=== PATIENT | female | born 1980 | race Caucasian/White ===

== ENCOUNTER 2017-08-16 02:33 | Inpatient (IN) | payer OTHER ==
[2017-08-16 04:06] LABS: Hematocrit 37 % (35-47); Hemoglobin 12.8 g/dl (12.0-16.0); Mean Corpuscular HGB Conc 34 g/dl (31-36); Mean Corpuscular Hemoglobin 31 pg (27-31); Mean Corpuscular Volume 89 fL (80-97); Mean Platelet Volume 9 um3 (7.4-10.4); Red Blood Count 4.19 10^6/ul (4.0-5.4); Red Cell Distribution Width 15 % (10.5-15); White Blood Count 9.2 10^3/ul (3.5-10.8)
[2017-08-16] MEDS ORDERED: Oxytocin in LR* 20 UNITS/1,000 ML BAG IVPB ONE (04:39)
[2017-08-16] MEDS ORDERED: Glycerin ADULT SUPP PR PRN (04:41)
[2017-08-16] MEDS ORDERED: Acetaminophen TAB* 325 MG PO PRN (04:41)
[2017-08-16] MEDS ORDERED: Dibucaine 1% 28.35 GM TUBE PR PRN (04:41)
[2017-08-16] MEDS ORDERED: Ibuprofen TAB* 600 MG ONE (04:56)
[2017-08-16] MEDS: Ibuprofen TAB* 600 MG PO PRN ×2 (04:59→18:00)
[2017-08-16] MEDS ORDERED: Oxytocin in LR* 20 UNITS/1,000 ML BAG IVPB SCH (05:00)
[2017-08-16] MEDS ORDERED: Simethicone TAB* 80 MG TAB.CHEW PO SCH (08:30)
[2017-08-16] MEDS: Witch Hazel PAD* JAR TOPICAL PRN (08:37)
[2017-08-16] MEDS: Docusate CAP* 100 MG PO SCH ×2 (08:37→14:43)
[2017-08-17] MEDS: Docusate CAP* 100 MG PO SCH ×2 (00:07→08:53)
[2017-08-17] MEDS: Ibuprofen TAB* 600 MG PO PRN ×3 (00:07→12:28)
[2017-08-17] MEDS: Witch Hazel PAD* JAR TOPICAL PRN (00:07)
[2017-08-17 07:18] LABS: Hematocrit 36 % (35-47); Hemoglobin 12.6 g/dl (12.0-16.0); Mean Corpuscular HGB Conc 35 g/dl (31-36); Mean Corpuscular Hemoglobin 31 pg (27-31); Mean Corpuscular Volume 88 fL (80-97); Mean Platelet Volume 9 um3 (7.4-10.4); Red Blood Count 4.07 10^6/ul (4.0-5.4); Red Cell Distribution Width 14 % (10.5-15); White Blood Count 8.8 10^3/ul (3.5-10.8)
[2017-08-17] MEDS ORDERED: Ferrous Gluconate TAB* 324 MG TAB PO SCH (09:00)
[2017-08-17 09:01] VITALS: BP 126/82
== END 2017-08-17 14:02 | disposition home or self-care (01) | DRG 775 ==
LOC: MCHOBOUT 02:33 → MCHOB 02:58
PROVIDERS: ADMIT Obstetrics & Gynecology; ATTEND Obstetrics & Gynecology
PROC: 10E0XZZ Delivery of Products of Conception, External Approach (ICD-10-PCS; principal; 2017-08-16)
PROC: 0HQ9XZZ Repair Perineum Skin, External Approach (ICD-10-PCS; 2017-08-16)
PROC: 4A1HXCZ Monitoring of Products of Conception, Cardiac Rate, External Approach (ICD-10-PCS; 2017-08-16)
DX: O34.219 Maternal care for unspecified type scar from previous cesarean delivery (principal); O70.0 First degree perineal laceration during delivery; Z37.0 Single live birth; Z3A.38 38 weeks gestation of pregnancy; Z91.048 Other nonmedicinal substance allergy status
CPT/HCPCS: 36415; 85025; 86850; 86900; 86901; A9270-GY